=== PATIENT | female | born 1965 | race Caucasian/White ===

== ENCOUNTER 2020-11-22 11:22 | Emergency (ER) | payer MEDICAID ==
[~2020-11-22] VITALS: Ht 167.6 cm; Wt 90.9 kg
[2020-11-22 12:24] VITALS: BP 149/95
[2020-11-22] MEDS ORDERED: METH4TAB81 PO (12:30)
[2020-11-22] MEDS ORDERED: ketorolac trometh inj. 60 MG/2 ML VIAL IM ONE (12:50)
== END 2020-11-22 13:04 | disposition home or self-care (01) ==
LOC: ER 11:23
DX: M25.511 Pain in right shoulder (principal); M25.532 Pain in left wrist; R53.1 Weakness
CPT/HCPCS: 73030; 73110; 96372; 99284; J1885

== ENCOUNTER 2020-12-15 13:26 | Emergency (ER) | payer MEDICAID ==
[~2020-12-15] VITALS: Ht 167.6 cm; Wt 90.9 kg
[~2020-12-15 13:26] MED LIST: METH4TAB81 PO
[2020-12-15 14:27] VITALS: BP 162/107
== END 2020-12-15 21:25 | disposition left against medical advice (07) ==
LOC: ER 13:27
DX: H57.10 Ocular pain, unspecified eye (principal); Z53.21 Procedure and treatment not carried out due to patient leaving prior to being seen by health care provider

== ENCOUNTER 2023-05-21 13:23 | Emergency (ER) | payer MEDICAID ==
[~2023-05-21] VITALS: Ht 167.6 cm; Wt 99.1 kg
[2023-05-21 13:40] VITALS: BP 137/90; TEMP 98.3
[2023-05-21 14:31] LABS: BASOPHILS # (AUTO) 0.1 X10'3 (0-0.2); BASOPHILS % (AUTO) 0.9 % (0-1); EOSINOPHILS # (AUTO) 0.1 X10'3 (0-0.9); HEMATOCRIT 50.9 % (35.0-45.0); LYMPHOCYTES # (AUTO) 2.1 X10'3 (1.1-4.8); LYMPHOCYTES % (AUTO) 23.7 % (21-51); MEAN CORPUSCULAR HEMOGLOBIN 32.1 PG (27.0-31.0); MEAN CORPUSCULAR HGB CONC 33.4 g/dL (33.0-36.5); MEAN CORPUSCULAR VOLUME 96.1 FL (78-98); MEAN PLATELET VOLUME 7.9 FL (7.4-10.4); MONOCYTES # (AUTO) 0.7 X10'3 (0-0.9); MONOCYTES % (AUTO) 7.9 % (2-12); NEUTROPHILS # (AUTO) 5.8 X10'3 (1.8-7.7); NEUTROPHILS % (AUTO) 66.5 % (42-75); PLATELET COUNT 334 X10'3 (140-440); RED CELL DISTRIBUTION WIDTH 15.3 % (11.5-14.5); WHITE BLOOD COUNT 8.7 X10'3 (4.5-11.0)
[2023-05-21 14:42] LABS: ALANINE AMINOTRANSFERASE 46 U/L (12-78); ALBUMIN 3.5 G/DL (3.4-5.0); ALBUMIN/GLOBULIN RATIO 0.8 (1.1-1.5); ALKALINE PHOSPHATASE 143 IU/L (46-116); ANION GAP 8 (8-16); ASPARTATE AMINO TRANSFERASE 28 U/L (10-37); BILIRUBIN,TOTAL 0.4 MG/DL (0.1-1.0); BLOOD UREA NITROGEN 6 MG/DL (7-18); BUN/CREATININE RATIO 6.8 (10.0-20.0); CALCIUM 8.6 MG/DL (8.5-10.1); CHLORIDE 100 MMOL/L (99-107); CREATININE 0.88 MG/DL (0.40-0.90); GLUCOSE 101 MG/DL (70-104); POTASSIUM 3.7 MMOL/L (3.5-5.1); SODIUM 136 MMOL/L (135-145); TOTAL CARBON DIOXIDE 27.6 MMOL/L (24-32); TOTAL PROTEIN 7.9 G/DL (6.4-8.2); eCRCL 67 ML/MIN; eGFR 66 ML/MIN
[2023-05-21 14:51] LABS: PRO BRAIN NATRIURETIC PEPTIDE 128 PG/ML (0-125)
[2023-05-21] MEDS ORDERED: ipratropium/albuterol 3ml nebule NEB PRN (15:45)
[2023-05-21 16:45] VITALS: PULSE 96; RESP 17; O2SAT 94
[2023-05-21 16:52] VITALS: PULSE 98; RESP 17; O2SAT 94
[2023-05-21] MEDS ORDERED: AMOX-117 PO (17:18)
[2023-05-21] MEDS ORDERED: PRED20TA PO (17:18)
== END 2023-05-21 17:33 | disposition home or self-care (01) ==
LOC: ER 13:23
DX: R07.81 Pleurodynia (principal); J44.9 Chronic obstructive pulmonary disease, unspecified; Z88.1 Allergy status to other antibiotic agents; Z79.899 Other long term (current) drug therapy
CPT/HCPCS: 36415; 71045; 80053; 83880; 84484; 85025; 93005; 94640; 94760; 99285

== ENCOUNTER 2023-10-16 15:24 | Emergency (ER) | payer MEDICAID ==
[~2023-10-16] VITALS: Ht 167.6 cm; Wt 102.8 kg
[2023-10-16 15:46] VITALS: BP 122/74; PULSE 107; RESP 18; TEMP 98; O2SAT 98
[2023-10-16] MEDS ORDERED: HYDR-3965 PO (17:02)
== END 2023-10-16 17:08 | disposition home or self-care (01) ==
LOC: ER 15:24
DX: R07.89 Other chest pain (principal); R05.9 Cough, unspecified; J44.9 Chronic obstructive pulmonary disease, unspecified; Z91.041 Radiographic dye allergy status; Z79.899 Other long term (current) drug therapy
CPT/HCPCS: 71046; 99283

== ENCOUNTER 2025-02-09 10:17 | Outpatient (CLI) | payer MEDICAID ==
[~2025-02-09 10:17] MED LIST changes: +HYDR-3965 PO
--- NOTE | 2025-02-09 14:25 | RADIOLOGY REPORT ---
CLINICAL HISTORY: JOINT PAIN RIGHT KNEE COMPARISON: None TECHNIQUE: Multisequence multiplanar MRI images of the right knee were obtained prior to and after th e uneventful administration of 15 mL Clariscan contrast. FINDINGS: Cruciate ligaments: ACL and PCL are intact. Extensor mechanism: Quadriceps mechanism and patellar tendon are intact. Mild edema and small amount of fluid in the prepatellar and superficial infrapatellar bursae. Collateral ligaments: Medial and lateral collateral ligaments are intact and otherwise unremarkable. Menisci: No significant degeneration. No evidence of meniscal tear. Cartilage: No focal chondral defect or significant chondromalacia. Bones: Serpiginous areas of signal abnormality are seen in the distal femur, including of the distal femoral metaphysis extending adjacent to the articular surface and of the posterior aspects of the me dial and lateral femoral condyles consistent with osteonecrosis/bone infarcts. There is prominent mar row edema in the proximal tibia involving the tibial eminence and anterior aspect of the lateral tibi al plateau. There is a nondisplaced fracture of the posterior aspect of the tibial eminence near the attachment site of the PCL. There is a subtle fracture plane of the lateral tibial metaphysis, with p ossible extension to the anterior cortex. No associated displacement or depression. There is prominen t marrow edema of the anterior aspect of the patella and extending to the inferior pole of the patell a without discrete fracture identified. Joint fluid: Moderate joint effusion. Mild synovitis. Other: No suspicious abnormal postcontrast enhancement. There is enhancement associated with the cont usions of the proximal tibia and in the patella as well as along the periphery of the bone infarcts/o steonecrosis. IMPRESSION: 1. Prominent marrow edema in the tibial eminence with nondisplaced fracture at its posterior aspect a djacent to the attachment site of the PCL. 2. Prominent marrow edema in the lateral tibial plateau and adjacent portions of the proximal tibial metaphysis. There is a subtle nondisplaced fracture plane of the lateral aspect of the proximal tibi al metaphysis extending to the anterior cortex. No associated displacement or depression. 3. 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 4. Focal marrow contusion in the patella without discrete fracture identified. 5. Moderate joint effusion with mild synovitis. 6. No suspicious postcontrast enhancement. Areas of enhancement are seen at the sites of the marrow contusions and along the periphery of the bone infarcts/osteonecrosis.
[2025-02-09] MEDS ORDERED: GADOTERATE MEGLUMINE 7.5 MMOL/15 ML VIAL IV ONE (17:31)
== END 2025-02-09 23:59 | disposition home or self-care (01) ==
LOC: MRI 10:17
PROVIDERS: ATTEND Student in an Organized Health Care Education/Training Program
DX: M25.461 Effusion, right knee (principal); M25.561 Pain in right knee; M65.861 Other synovitis and tenosynovitis, right lower leg
CPT/HCPCS: 73723; A9575